=== PATIENT | male | born 2000 | race Caucasian/White ===

== ENCOUNTER 2022-02-20 12:02 | Emergency (ER) | payer OTHER, SELFPAY ==
--- NOTE | 2022-02-20 12:05 | ED.URI ---
HPI - URI/Sore Throat General Chief Complaint: Upper Respiratory Infection Stated Complaint: Not Feeling Well Time Seen by Provider: 02/20/22 12:05 Source: patient Mode of arrival: ambulatory Limitations: no limitations History of Present Illness HPI Narrative: Mr. Gill is a 21-year-old male patient presenting to the clinic today with complaints of not feeling well . He reports he has a sore throat, headache, nausea, and body aches x1 week. He denies any known COVID exposure, strep exposure, or influenza Related Data Allergies Allergy/AdvReac Type Severity Reaction Status Date / Time No Known Allergies Allergy Verified 02/20/22 12:09 Review of Systems Review of Systems: Pertinent positives per HPI. Patient denies any rash, visual changes, dizziness, cough, runny nose, shortness of breath, chest pain, palpitations, vomiting, diarrhea, constipation, abdominal pain, or any urinary issues. PMFSH Comments At the time of my signature, I reviewed and agree with the nursing past medical, surgical, social, and family history. There is no relevant family history pertinent to the patient complaint. Exam Narrative: General: Well-developed, well nourished, in no apparent distress Head: Normocephalic, atraumatic Eyes: Pupils equally round and reactive to light bilaterally, EOM intact, sclera and conjunctive clear, no discharge, lids normal Ears: TMs intact and clear, ear canals clear, no drainage, grossly hearing normal. Nose: Nares patent, no discharge, no inflammation, no sinus tenderness. Mouth: Oropharynx without lesions or masses, good dentition, MMM. Oropharynx red with bilateral tonsillar swelling with white exudate Neck: Supple, trachea midline, positive enlargement of anterior cervical nodes, no thyroid masses or goiter palpable. Cardio: Regular rate and rhythm, s1 and s2 normal, no murmur appreciated. Resp: Clear to auscultation bilaterally anteriorly and posteriorly, no rhonchi, rales, wheezing or rubs Course Course Emergency Course: Portions of this record may have been created with voice recognition software. Level of Care: Express Care Visit Vital Signs Vital signs: Vital Signs Temperature 36.8 C 02/20/22 12:16 Pulse Rate 67 02/20/22 12:16 Respiratory Rate 16 02/20/22 12:16 Blood Pressure 155/69 H 02/20/22 12:16 Pulse Oximetry 100 02/20/22 12:16 Oxygen Delivery Room Air 02/20/22 12:16 Temperature 36.8 C 02/20/22 12:16 Pulse Rate 67 02/20/22 12:16 Respiratory Rate 16 02/20/22 12:16 Blood Pressure 155/69 H 02/20/22 12:16 Pulse Oximetry 100 02/20/22 12:16 Oxygen Delivery Room Air 02/20/22 12:16 Vital signs reviewed MDM - URI/Sore Throat MDM Narrative Medical decision making narrative: At the time of visit patient is resting comfortably on the exam table. Strep screen was obtained in the clinic and was positive. I will send in a prescription for amoxicillin and supportive measures were discussed with the patient he voiced understanding of discharge instructions and agrees to the treatment plan. Differential Diagnosis Differential diagnosis: Likely upper respiratory infection, otitis media, sinusitis, viral infection, bronchitis, influenza, pharyngitis and other (COVID) Lab Data Labs: Strep Screen Positive Group A Strep *(Reference Range: Negative)* Discharge Plan Discharge Clinical Impression: Strep pharyngitis Patient Disposition: Home, Self-Care Condition: Stable Instructions: Antibiotic Form, Strep Throat (ED) Additional Instructions: Take prescription medications only as prescribed Amoxicillin as directed Change toothbrush in 24 hours after the initiation of antibiotics Increase fluids and stay well hydrated Tylenol/motrin for pain/fever Flonase and OTC antihistamines as directed Vicks vapor rub to open sinuses Sinus rinses for congestion Cepacol spray, cou
[2022-02-20 12:16] VITALS: BP 155/69; PULSE 67; RESP 16; TEMP 36.8; O2SAT 100
== END 2022-02-20 12:40 | disposition home or self-care (01) ==
PROVIDERS: Emergency Provider Nurse Practitioner Family
DX: J02.0 Streptococcal pharyngitis (principal)
CPT/HCPCS: 87880; 99203; G0463

== ENCOUNTER 2022-02-27 13:34 | Emergency (ER) | payer OTHER, SELFPAY ==
[2022-02-27 14:30] VITALS: BP 147/58; PULSE 64; RESP 16; TEMP 36.7; O2SAT 100
--- NOTE | 2022-02-27 14:46 | ED.GENADULT ---
HPI - General Adult General Chief complaint: Headache Stated complaint: headaches Time Seen by Provider: 02/27/22 14:15 Source: patient Mode of arrival: ambulatory Limitations: no limitations History of Present Illness HPI narrative: 21-year-old male patient presents to the [facility] with complaints of a headache for the past week. Patient states he was seen here last weekend and was diagnosed with a strep. Patient states he has not quite yet completed his antibiotic but is sore throat is gone but complaining of a headache. Patient states he has been taking Tylenol and ibuprofen for. Patient also noted to the intake nurse that he has been on about 502,000 mg of caffeine daily to self treat his ADHD. Patient states he is now on about 2-300 he went down since getting ill with the strep throat. Patient denies take anything else for his ADHD or Sinemet provider. Patient states he has not been prescribed the caffeine. Patient denies any issues with walking. Denies any weakness on one side or the other. Denies any vision changes. Related Data Home Medications Medication Instructions Recorded Confirmed caffeine 200 mg tablet 200 mg PO TID PRN ADHD 02/27/22 02/27/22 Allergies Allergy/AdvReac Type Severity Reaction Status Date / Time No Known Allergies Allergy Verified 02/20/22 12:09 Review of Systems Review of Systems: CONSTITUTIONAL: Denies fever, chills, or sweats. EYES: Denies visual changes, redness, or discharge. ENT: Denies rhinorrhea, congestion, sore throat, or otalgia. CARDIOVASCULAR: Denies chest pain, palpitations, or edema. RESPIRATORY: Denies cough or dyspnea. GASTROINTESTINAL: Denies abdominal pain, nausea, vomiting, or diarrhea. GENITOURINARY: Denies dysuria or hematuria. SKIN: Denies rash or itching. MUSCULOSKELETAL: Denies back pain, joint pain, or myalgia. NEUROLOGIC: Positive headache, denies numbness, or weakness. PSYCHIATRIC: Denies anxiety or depression. PMFSH Past Medical History Medical History (Updated 02/27/22 @ 15:01 by SONALI Chapman) No significant past medical history Comments At the time of my signature I agree with nursing past medical history, surgical, social, and family history. There is no relevant family history pertinent to the presenting complaint. Exam Narrative: GENERAL: Well-appearing, well-nourished, and in no acute distress. HEAD: Normocephalic, atraumatic. EYES: PERRLA and EOMI. ENT: Nares clear, no rhinorrhea or epistaxis. Mucous membranes moist. NECK: Supple. No lymphadenopathy CHEST: Clear to auscultation. No respiratory distress. HEART: Regular rate and rhythm. No murmur heard. Normal peripheral pulses. ABDOMEN: Soft, nontender, nondistended, normal active bowel sounds. EXTREMITIES: Normal range of motion. No edema. SKIN: Warm, dry, no rash. NEURO: Alert and oriented x4, GCS 15. Cranial nerves II through XII grossly intact. No focal neurological deficits. Normal muscle strength and tone. Normal deep tendon reflexes. Negative Babinski, normal finger to nose coordination he had normal heel to harper glide. Speech is clear. Normal gait. Negative Romberg and no pronator drift Course Course Level of Care: Express Care Visit Vital Signs Vital signs: Vital Signs Temperature 36.7 C 02/27/22 14:30 Pulse Rate 64 02/27/22 14:30 Respiratory Rate 16 02/27/22 14:30 Blood Pressure 147/58 H 02/27/22 14:30 Pulse Oximetry 100 02/27/22 14:30 Oxygen Delivery Room Air 02/27/22 14:30 Temperature 36.7 C 02/27/22 14:30 Pulse Rate 64 02/27/22 14:30 Respiratory Rate 16 02/27/22 14:30 Blood Pressure 147/58 H 02/27/22 14:30 Pulse Oximetry 100 02/27/22 14:30 Oxygen Delivery Room Air 02/27/22 14:30 Vital signs reviewed The patient has been informed that they may have pre-hypertension or Hypertension based on a BP reading in the department. I recommend that the patient call the primary care provider listed on their discharge instructio
--- NOTE | 2022-02-27 14:58 | ED.GENADULT ---
HPI - General Adult General Chief complaint: Headache Stated complaint: headaches Time Seen by Provider: 02/27/22 14:15 Source: patient Mode of arrival: ambulatory Limitations: no limitations History of Present Illness HPI narrative: 21-year-old male patient presents to the [facility] with complaints of a headache for the past week. Patient states he was seen here last weekend and was diagnosed with a strep. Patient states he has not quite yet completed his antibiotic but is sore throat is gone but complaining of a headache. Patient states he has been taking Tylenol and ibuprofen for. Patient also noted to the intake nurse that he has been on about 502,000 mg of caffeine daily to self treat his ADHD. Patient states he is now on about 2-300 he went down since getting ill with the strep throat. Patient denies take anything else for his ADHD or Sinemet provider. Patient states he has not been prescribed the caffeine. Patient denies any issues with walking. Denies any weakness on one side or the other. Denies any vision changes. Related Data Home Medications Medication Instructions Recorded Confirmed caffeine 200 mg tablet 200 mg PO TID PRN ADHD 02/27/22 02/27/22 Allergies Allergy/AdvReac Type Severity Reaction Status Date / Time No Known Allergies Allergy Verified 02/20/22 12:09 Review of Systems Review of Systems: CONSTITUTIONAL: Denies fever, chills, or sweats. EYES: Denies visual changes, redness, or discharge. ENT: Denies rhinorrhea, congestion, sore throat, or otalgia. CARDIOVASCULAR: Denies chest pain, palpitations, or edema. RESPIRATORY: Denies cough or dyspnea. GASTROINTESTINAL: Denies abdominal pain, nausea, vomiting, or diarrhea. GENITOURINARY: Denies dysuria or hematuria. SKIN: Denies rash or itching. MUSCULOSKELETAL: Denies back pain, joint pain, or myalgia. NEUROLOGIC: Positive headache, denies numbness, or weakness. PSYCHIATRIC: Denies anxiety or depression. PMFSH Past Medical History Medical History (Updated 02/27/22 @ 15:01 by SONALI Chapman) No significant past medical history Exam Narrative: GENERAL: Well-appearing, well-nourished, and in no acute distress. HEAD: Normocephalic, atraumatic. EYES: PERRLA and EOMI. ENT: Nares clear, no rhinorrhea or epistaxis. Mucous membranes moist. NECK: Supple. No lymphadenopathy CHEST: Clear to auscultation. No respiratory distress. HEART: Regular rate and rhythm. No murmur heard. Normal peripheral pulses. ABDOMEN: Soft, nontender, nondistended, normal active bowel sounds. EXTREMITIES: Normal range of motion. No edema. SKIN: Warm, dry, no rash. NEURO: No focal deficits. Alert and oriented x3. Course Vital Signs Vital signs: Vital Signs Temperature 36.7 C 02/27/22 14:30 Pulse Rate 64 02/27/22 14:30 Respiratory Rate 16 02/27/22 14:30 Blood Pressure 147/58 H 02/27/22 14:30 Pulse Oximetry 100 02/27/22 14:30 Oxygen Delivery Room Air 02/27/22 14:30 Temperature 36.7 C 02/27/22 14:30 Pulse Rate 64 02/27/22 14:30 Respiratory Rate 16 02/27/22 14:30 Blood Pressure 147/58 H 02/27/22 14:30 Pulse Oximetry 100 02/27/22 14:30 Oxygen Delivery Room Air 02/27/22 14:30 Medical Decision Making Vital Signs Vital Signs: Vital Signs Temperature 36.7 C 02/27/22 14:30 Pulse Rate 64 02/27/22 14:30 Respiratory Rate 16 02/27/22 14:30 Blood Pressure 147/58 H 02/27/22 14:30 Pulse Oximetry 100 02/27/22 14:30 Oxygen Delivery Room Air 02/27/22 14:30 Temperature 36.7 C 02/27/22 14:30 Pulse Rate 64 02/27/22 14:30 Respiratory Rate 16 02/27/22 14:30 Blood Pressure 147/58 H 02/27/22 14:30 Pulse Oximetry 100 02/27/22 14:30 Oxygen Delivery Room Air 02/27/22 14:30 Discharge Plan Discharge Clinical Impression: Headache Patient Disposition: Home, Self-Care Condition: Stable Instructions: Acute Headache (DC) Additional Instructions: Most headaches are not seri
== END 2022-02-27 15:05 | disposition home or self-care (01) ==
PROVIDERS: Emergency Provider Nurse Practitioner Family
DX: R51.9 Headache, unspecified (principal)
CPT/HCPCS: 99212; G0463

== ENCOUNTER 2022-03-04 11:02 | Emergency (ER) | payer OTHER, SELFPAY ==
[2022-03-04 11:11] VITALS: BP 167/84; PULSE 65; RESP 16; TEMP 36.6; O2SAT 100
--- NOTE | 2022-03-04 11:12 | ED.GENADULT ---
HPI - General Adult General Chief complaint: Upper Respiratory Infection Stated complaint: Sore Throat,Headache Time Seen by Provider: 03/04/22 11:14 Source: patient and RN notes reviewed Mode of arrival: ambulatory Limitations: no limitations History of Present Illness HPI narrative: 21-year-old male presents to the [facility] with continued sore throat and headache. Has been seen on February 21, 2012 days ago diagnosed with strep. Was seen on February 27, 5 days ago for a headache. Patient reports that he does not have a primary so he returned here. States he feels better than he did yesterday. Continues to take Motrin and Tylenol. States he did take all of his amoxicillin which he finished yesterday. Related Data Allergies Allergy/AdvReac Type Severity Reaction Status Date / Time No Known Allergies Allergy Verified 03/04/22 11:12 Review of Systems Review of Systems: All systems reviewed & are unremarkable except as noted in HPI and below Constitutional: Constitutional: Reports no additional constitutional complaints, Denies chills and Denies fever(s) Eyes: Eyes: Reports no additional eye complaints ENT: Reports as per HPI and Reports sore throat Cardiovascular: Cardiovascular: Reports no additional cardiovascular complaints Respiratory: Respiratory: Reports no additional respiratory complaints Gastrointestinal: Gastrointestinal: Reports no additional gastrointestinal complaints Musculoskeletal: Musculoskeletal: Reports no additional musculoskeletal complaints Integumentary/Breasts: Skin/Breast: Reports system reviewed and no additional complaints, except as docu Neurologic: Reports as per HPI and Reports headache(s) Psychiatric: Psychiatric: Reports no additional psychiatric complaints Allergic/Immunologic: Allergic/Immunologic: Reports no additional allergic/immunologic complaints PMFSH Past Medical History Medical History (Updated 03/04/22 @ 19:26 by Angeles Campos APRN) No significant past medical history Surgical History Surgical History (Updated 03/04/22 @ 19:25 by Angeles Campos APRN) No pertinent past surgical history Social History Social History Gender identity (if verbalized by the patient): Male Comments At the time of my signature, I reviewed and agree with the nursing past medical, surgical, social, and family history. There is no relevant family history pertinent to the patient complaint. Exam Const: General: healthy appearing, no acute distress and alert Nutritional Appearance: well nourished Orientation/consciousness: patient oriented x3 Limitations: no limitations HENMT: Head: normal to inspection Ears: external ears normal, TM's normal bilaterally and EAC's normal General nose exam: Normal external nose present Mouth: Yes Normal oral and palatal mucosa present Throat: tonsils normal, uvula midline, posterior oropharynx abnormal erythema and postnasal drainage Eyes: General: appearance normal, both eyes and all related structures Pupils: Equal, round and reactive pupils present Neck: Neck: normal visual inspection, no lymphadenopathy and no meningeal signs Chest: Chest palpation & inspection: normal inspection of the chest Resp: Effort & Inspection: normal respiratory effort and no use of accessory muscles Auscultation: clear to auscultation bilaterally, no crackles, no rales, no rhonchi and no wheezes Cardio: Rate: regular rate Rhythm: regular rhythm Back/Spine/Pelvis: Cervical Spine: normal cervical lordosis Thoracic/Lumbar Spine: thoracic and lumbar spine normal to inspection Skin: General skin exam: normal color Rashes: no rashes Wounds: no wounds Neuro: General: patient oriented x3, moves all extremities, no meningeal signs and no focal motor deficits Cranial nerves: Yes Equal, round and reactive pupils present Speech: normal speech Gait exam (Neuro): Normal gait present Extrem: General: normal to insp
== END 2022-03-04 12:20 | disposition home or self-care (01) ==
PROVIDERS: Emergency Provider Nurse Practitioner
DX: J06.9 Acute upper respiratory infection, unspecified (principal)
CPT/HCPCS: 36416; 86308; 87081; 87880; 99213; G0463

== ENCOUNTER 2022-05-04 13:52 | Emergency (ER) | payer OTHER, SELFPAY ==
[2022-05-04 13:59] VITALS: BP 107/67; PULSE 67; RESP 16; TEMP 36.5; O2SAT 100
--- NOTE | 2022-05-04 14:00 | ED.URI ---
HPI - URI/Sore Throat General Chief Complaint: Upper Respiratory Infection Stated Complaint: Sore Throat Time Seen by Provider: 05/04/22 14:00 History of Present Illness HPI Narrative: Salvador Gill is a 21 yo male with PMH of ADD, depression, who comes to [facility] with complaints of a sore throat that started about 3 days ago, still drinking fluids. he states that he has not taken his temperature but that his throat has really bothered him the last day or 2 He has new medication for anxiety and ADD, non-smoker, socially drinks Related Data Home Medications Medication Instructions Recorded Confirmed dextroamphetamine-amphetamine ER 10 mg PO DAILY 05/04/22 05/04/22 10 mg 24hr capsule,extend release escitalopram oxalate 10 mg tablet 10 mg PO DAILY 05/04/22 05/04/22 Allergies Allergy/AdvReac Type Severity Reaction Status Date / Time No Known Allergies Allergy Verified 05/04/22 13:54 Review of Systems Review of Systems: CONSTITUTIONAL: Denies fever, chills, sweats. EYES: Denies visual changes, redness, discharge. ENT: Denies rhinorrhea, congestion, has sore throat, otalgia. CARDIOVASCULAR: Denies chest pain, palpitations, edema. RESPIRATORY: Denies dyspnea, wheezing, cough GASTROINTESTINAL: Denies abdominal pain, nausea, vomiting, diarrhea. GENITOURINARY: Denies dysuria, hematuria, abnormal discharge SKIN: Denies rash or itching. NEUROLOGIC: Denies numbness, or focal weakness. PSYCHIATRIC: Denies anxiety or depression. PMFSH Past Medical History Medical History ACL tear ADD (attention deficit disorder) Anxiety Surgical History Surgical History No pertinent past surgical history Social History Social History (Updated 05/04/22 @ 14:14 by Agata Guerra CNP) Smoking status: Never smoker Alcohol intake: current Gender identity (if verbalized by the patient): Male Comments At time of signature, I agree with nursing past medical, surgical, social and family history. There is no relevant family history pertinent to the presenting complaint. Exam Narrative: GENERAL: This is a well-nourished, well-developed patient, in mild distress. HEAD: normocephalic, atraumatic. EYES: Sclera clear/white. Vision is grossly intact. EARS: External ears normal, auditory canals bilateral erythema without drainage, TMs normal without perforation. Hearing grossly intact. NOSE: External nose normal without nasal discharge, nares without redness, no rhinorrhea. THROAT: Mucous membranes moist, posterior pharynx erythema with mild edema of uvula NECK: Neck supple, non-tender CARDIOVASCULAR: Regular rate and rhythm without murmurs, gallops, or rubs. RESPIRATORY: Clear to auscultation. Breath sounds equal bilaterally. No wheezes, rales, or rhonchi. GASTROINTESTINAL: Abdomen soft, non-tender, SKIN: warm, intact with no suspicious lesions or rash, good texture and turgor. NEURO: awake, alert, and oriented to person, place and time. There were no obvious focal neurologic abnormalities. Steady gait EXTREMITIES: Normal range of motion. BACK: Nontender without deformity Course Course Emergency Course: Patient states has history of strep throat for 3 to 4 days that is worsening Strep test unavailable treated empirically Amoxicillin 875 1 twice daily x10 days Level of Care: Express Care Visit Vital Signs Vital signs: Vital Signs Temperature 97.7 F 05/04/22 13:59 Pulse Rate 67 05/04/22 13:59 Respiratory Rate 16 05/04/22 13:59 Blood Pressure 107/67 05/04/22 13:59 Pulse Oximetry 100 05/04/22 13:59 Oxygen Delivery Room Air 05/04/22 13:59 Temperature 97.7 F 05/04/22 13:59 Pulse Rate 67 05/04/22 13:59 Respiratory Rate 16 05/04/22 13:59 Blood Pressure 107/67 05/04/22 13:59 Pulse Oximetry 100 05/04/22 13:59 Oxygen Delivery Room Air 05/04/22 13:59 MDM - URI/Sore Th
== END 2022-05-04 14:24 | disposition home or self-care (01) ==
PROVIDERS: Emergency Provider Nurse Practitioner
DX: J02.8 Acute pharyngitis due to other specified organisms (principal); F98.8 Other specified behavioral and emotional disorders with onset usually occurring in childhood and adolescence; F41.9 Anxiety disorder, unspecified
CPT/HCPCS: 99213; G0463